=== PATIENT | male | born 1995 | race Caucasian/White ===

== ENCOUNTER 2020-12-05 10:08 | Inpatient (IN) | payer BC, MEDICAID ==
[~2020-12-05 10:08] MED LIST: Acetaminophen 500 MG Tab ONE
[2020-12-05] MEDS ORDERED: Acetaminophen 500 MG Tab PO ONE (10:23)
[2020-12-05] MEDS ORDERED: Sodium Chloride 0.9% 1,000 ML IV ONE (10:36)
--- NOTE | 2020-12-05 10:36 | EDM.PDOC ---
ED HPI GENERAL MEDICAL PROBLEM - General Chief Complaint: General Stated Complaint: covid sx Time Seen by Provider: 12/05/20 10:20 Source of Information: Reports: Patient History Limitations: Reports: No Limitations - History of Present Illness INITIAL COMMENTS - FREE TEXT/NARRATIVE: This patient is a 25 year old male that presents to the ER. Patient reports that started yesterday morning with some diarrhea. Patient reports as the day progressed he become sweaty and having cold chills. He reports then started yesterday evening having abdominal pain, diarrhea, fever, nausea. Patient reports his abdominal pain waxes and wanes. Denies an other sick contacts. Onset Date: 12/04/20 Location: Reports: Abdomen Severity: Moderate Improves with: Reports: None Worsens with: Reports: None Associated Symptoms: Reports: Fever/Chills, Loss of Appetite, Nausea/Vomiting. 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 (yesterday), NSAIDS (yesterday) Lower Abdomen Pain Score (Numeric/FACES): 8 - Related Data Allergies Allergy/AdvReac Type Severity Reaction Status Date / Time No Known Allergies Allergy Verified 12/05/20 10:16 Home Meds: Home Meds Acetaminophen [Tylenol] 650 mg PO Q6H PRN 12/05/20 [History] Past Medical History - Past Health History Medical/Surgical History: Denies Medical/Surgical History Social & Family History - Family History Family Medical History: No Pertinent Family History - Tobacco Use Tobacco Use Status *Q: Never Tobacco User - Caffeine Use Caffeine Use: Reports: Coffee - Recreational Drug Use Recreational Drug Use: No ED ROS GENERAL - Review of Systems Review Of Systems: See Below Constitutional: Reports: Fever, Chills, Diaphoresis HEENT: Reports: No Symptoms. Denies: Ear Pain, Nose Pain, Rhinitis, Sinus Problem, Throat Pain, Throat Swelling, Vertigo Respiratory: Reports: Cough. Denies: Shortness of Breath, Wheezing, Pleuritic Chest Pain, Sputum Cardiovascular: Reports: No Symptoms. Denies: Chest Pain, Dyspnea on Exertion, Edema, Lightheadedness, Palpitations, Syncope Endocrine: Reports: No Symptoms GI/Abdominal: Reports: Abdominal Pain, Diarrhea, Decreased Appetite, Nausea. Denies: Vomiting : Reports: No Symptoms Musculoskeletal: Reports: Muscle Pain (muscle aches general) Skin: Reports: No Symptoms Neurological: Reports: Headache. Denies: Confusion, Dizziness, Seizure, Weakness Psychiatric: Reports: No Symptoms Hematologic/Lymphatic: Reports: No Symptoms Immunologic: Reports: No Symptoms ED EXAM, GENERAL - Physical Exam Exam: See Below Exam Limited By: No Limitations General Appearance: Alert, WD/WN, No Apparent Distress Eye Exam: Bilateral Eye: Normal Inspection, PERRL Ears: Normal External Exam, Normal Canal, Hearing Grossly Normal, Normal TMs Ear Exam: Bilateral Ear: Auricle Normal, Canal Normal, TM normal Nose: Normal Inspection, Normal Mucosa, No Blood Throat/Mouth: Normal Inspection, Normal Lips, Normal Teeth, Normal Gums, Normal Oropharynx, Normal Voice, No Airway Compromise Head: Atraumatic, Normocephalic Neck: Normal Inspection, Supple, Non-Tender, Full Range of Motion Respiratory/Chest: No Respiratory Distress, Lungs Clear, Normal Breath Sounds, No Accessory Muscle Use, Chest Non-Tender Cardiovascular: Normal Peripheral Pulses, No Edema, No Gallop, No JVD, No Murmur, No Rub, Tachycardia (116 on exam. Also has fever. ) Peripheral Pulses: 2+: Radial (L), Radial (R), Posterior Tibial (L), Posterior Tibial (R) GI/Abdominal: Normal Bowel Sounds, Soft, No Organomegaly, No Distention, Rebound, Tender (LLQ, RLQ. ). No: Guarding (Male) Exam: Deferred Rectal (Males) Exam: Deferred Back Exam: Normal Inspection, Full Range of Motion. No: CVA Tenderness (L), CVA Tenderness (R) Extremities: Normal Inspection, Normal Range of Motion, Non-Tender, No Pedal Edema, Normal Capillary Refill Neurological: Alert, Oriented, Normal Cognition, Normal Gait, No Motor/Sensory Deficits Psychiatric: Normal Affect, Normal Mood Skin Exam: Warm, Dry, Intact, Normal Color, No Rash Lymphatic: No Adenopathy Course - Vital Signs Last Recorded V/S: Last Vital Signs Temp 99.6 F 12/05/20 13:56 Pulse 93 12/05/20 13:56 Resp 18 12/05/20 13:56 BP 135/78 12/05/20 13:56 Pulse Ox 94 L 12/05/20 13:56 - Orders/Labs/Meds Orders: Active Orders 24 hr Category Date Time Status Abdomen Pelvis w Cont [CT] Stat Exams 12/05/20 10:36 Taken Chest 2V [CR] Stat Exams 12/05/20 10:09 Taken CULTURE BLOOD [BC] Stat Lab 12/05/20 10:45 Received CULTURE BLOOD [BC] Stat Lab 12/05/20 10:45 Received Blood Culture x2 Reflex Set [OM.PC] Stat Oth 12/05/20 10:09 Ordered Labs: Laboratory Tests 12/05/20 12/05/20 12/05/20 Range/Units 10:20 10:20 10:37 WBC (5.0-10.0) 10^3/uL RBC (4.50-6.00) 10^6/uL Hgb (14.0-18.0) g/dL Hct (40.0-54.0) % MCV (82.0-94.0) fL MCH (27.0-32.0) pg MCHC (33.0-38.0) g/dL RDW Coeff of Jorge (11.0-15.0) % Plt Count (150-400) 10^3/uL Neut % (Auto) (35-85) % Lymph % (Auto) (10-55) % [place] % (Auto) (0-16) % Eos % (Auto) (0-5) % Baso % (Auto) (0-3) % Neut # (Auto) (1.80-7.00) 10^3/uL Lymph # (Auto) (1.00-4.80) 10^3/uL [place] # (Auto) (0.00-0.80) 10^3/uL Eos # (Auto) (0.00-0.45) 10^3/uL Baso # (Auto) 10^3/uL PT (9.7-12.3) SEC INR (0.92-1.18) APTT (23.2-32.3) SEC D-Dimer, Quantitative (0.00-0.50) Sodium (136-145) mEq/L Potassium (3.5-5.0) mEq/L Chloride (98-106) mEq/L Carbon Dioxide (21-32) mmol/L BUN (7-18) mg/dL Creatinine (0.7-1.3) mg/dL Est Cr Clr Drug Dosing mL/min Estimated GFR (MDRD) (>=60) mL/min Glucose (75-99) mg/dL Lactic Acid (0.4-2.0) mmol/L Calcium (8.4-10.1) mg/dL Total Bilirubin (0.0-1.0) mg/dL AST (15-37) U/L ALT (12-78) U/L Alkaline Phosphatase (46-116) U/L Creatine Kinase (35-232) U/L Troponin I (0.00-0.06) ng/mL NT-Pro-B Natriuret Pep (0-1000) pg/mL Total Protein (6.4-8.2) g/dL Albumin (3.4-5.0) g/dL Amylase 41 (25-115) U/L Lipase 81 (73-393) U/L Urine Color Dark yellow (YELLOW) Urine Appearance Slightly cloudy (CLEAR) Urine pH 6.0 (4.5-8.0) Ur Specific [place] >= 1.030 H (1.003-1.020) Urine Protein Trace H (NEGATIVE) mg/dL Urine Glucose (UA) Negative (NEGATIVE) mg/dL Urine Ketones Negative (NEGATIVE) mg/dL Urine Occult Blood Trace-intact H (NEGATIVE) Urine Nitrite Negative (NEGATIVE) Urine Bilirubin Negative (NEGATIVE) Urine Urobilinogen 0.2 (0.2-1.0) EU/dL Ur Leukocyte Esterase Negative (NEGATIVE) Urine RBC 0-5 (0-5) /HPF Urine WBC 0-5 (0-5) /HPF Urine Mucus Many H (NOT SEEN) /HPF Monoscreen Influenza Type A RNA Negative (NEGATIVE) Influenza Type B RNA Negative (NEGATIVE) SARS-CoV-2 RNA (CHARLES) Negative (NEGATIVE) 12/05/20 12/05/20 12/05/20 Range/Units 10:45 10:45 10:45 WBC 20.8 H* (5.0-10.0) 10^3/uL RBC 5.21 (4.50-6.00) 10^6/uL Hgb 15.3 (14.0-18.0) g/dL Hct 43.8 (40.0-54.0) % MCV 84.1 (82.0-94.0) fL MCH 29.4 (27.0-32.0) pg MCHC 34.9 (33.0-38.0) g/dL RDW Coeff of Jorge 12.7 (11.0-15.0) % Plt Count 279 (150-400) 10^3/uL Neut % (Auto) 85.9 H (35-85) % Lymph % (Auto) 7.5 L (10-55) % [place] % (Auto) 6.4 (0-16) % Eos % (Auto) 0.1 (0-5) % Baso % (Auto) 0.1 (0-3) % Neut # (Auto) 17.86 H (1.80-7.00) 10^3/uL Lymph # (Auto) 1.57 (1.00-4.80) 10^3/uL [place] # (Auto) 1.34 H (0.00-0.80) 10^3/uL Eos # (Auto) 0.02 (0.00-0.45) 10^3/uL Baso # (Auto) 0.03 10^3/uL PT 11.6 (9.7-12.3) SEC INR 1.06 (0.92-1.18) APTT 23.6 (23.2-32.3) SEC D-Dimer, Quantitative 0.53 H (0.00-0.50) Sodium 139 (136-145) mEq/L Potassium 3.9 (3.5-5.0) mEq/L Chloride 99 (98-106) mEq/L Carbon Dioxide 28 (21-32) mmol/L BUN 11 (7-18) mg/dL Creatinine 1.4 H (0.7-1.3) mg/dL Est Cr Clr Drug Dosing 98.17 mL/min Estimated GFR (MDRD) > 60 (>=60) mL/min Glucose 118 H (75-99) mg/dL Lactic Acid (0.4-2.0) mmol/L Calcium 9.4 (8.4-10.1) mg/dL Total Bilirubin 0.7 (0.0-1.0) mg/dL AST 21 (15-37) U/L ALT 88 H (12-78) U/L Alkaline Phosphatase 56 (46-116) U/L Creatine Kinase 73 (35-232) U/L Troponin I < 0.017 (0.00-0.06) ng/mL NT-Pro-B Natriuret Pep 11 (0-1000) pg/mL Total Protein 8.0 (6.4-8.2) g/dL Albumin 4.2 (3.4-5.0) g/dL Amylase (25-115) U/L Lipase (73-393) U/L Urine Color (YELLOW) Urine Appearance (CLEAR) Urine pH (4.5-8.0) Ur Specific [place] (1.003-1.020) Urine Protein (NEGATIVE) mg/dL Urine Glucose (UA) (NEGATIVE) mg/dL Urine Ketones (NEGATIVE) mg/dL Urine Occult Blood (NEGATIVE) Urine Nitrite (NEGATIVE) Urine Bilirubin (NEGATIVE) Urine Urobilinogen (0.2-1.0) EU/dL Ur Leukocyte Esterase (NEGATIVE) Urine RBC (0-5) /HPF Urine WBC (0-5) /HPF Urine Mucus (NOT SEEN) /HPF Monoscreen Influenza Type A RNA (NEGATIVE) Influenza Type B RNA (NEGATIVE) SARS-CoV-2 RNA (CHARLES) (NEGATIVE) 12/05/20 12/05/20 Range/Units 10:45 12:05 WBC (5.0-10.0) 10^3/uL RBC (4.50-6.00) 10^6/uL Hgb (14.0-18.0) g/dL Hct (40.0-54.0) % MCV (82.0-94.0) fL MCH (27.0-32.0) pg MCHC (33.0-38.0) g/dL RDW Coeff of Jorge (11.0-15.0) % Plt Count (150-400) 10^3/uL Neut % (Auto) (35-85) % Lymph % (Auto) (10-55) % [place] % (Auto) (0-16) % Eos % (Auto) (0-5) % Baso % (Auto) (0-3) % Neut # (Auto) (1.80-7.00) 10^3/uL Lymph # (Auto) (1.00-4.80) 10^3/uL [place] # (Auto) (0.00-0.80) 10^3/uL Eos # (Auto) (0.00-0.45) 10^3/uL Baso # (Auto) 10^3/uL PT (9.7-12.3) SEC INR (0.92-1.18) APTT (23.2-32.3) SEC D-Dimer, Quantitative (0.00-0.50) Sodium (136-145) mEq/L Potassium (3.5-5.0) mEq/L Chloride (98-106) mEq/L Carbon Dioxide (21-32) mmol/L BUN (7-18) mg/dL Creatinine (0.7-1.3) mg/dL Est Cr Clr Drug Dosing mL/min Estimated GFR (MDRD) (>=60) mL/min Glucose (75-99) mg/dL Lactic Acid 2.4 H (0.4-2.0) mmol/L Calcium (8.4-10.1) mg/dL Total Bilirubin (0.0-1.0) mg/dL AST (15-37) U/L ALT (12-78) U/L Alkaline Phosphatase (46-116) U/L Creatine Kinase (35-232) U/L Troponin I (0.00-0.06) ng/mL NT-Pro-B Natriuret Pep (0-1000) pg/mL Total Protein (6.4-8.2) g/dL Albumin (3.4-5.0) g/dL Amylase (25-115) U/L Lipase (73-393) U/L Urine Color (YELLOW) Urine Appearance (CLEAR) Urine pH (4.5-8.0) Ur Specific [place] (1.003-1.020) Urine Protein (NEGATIVE) mg/dL Urine Glucose (UA) (NEGATIVE) mg/dL Urine Ketones (NEGATIVE) mg/dL Urine Occult Blood (NEGATIVE) Urine Nitrite (NEGATIVE) Urine Bilirubin (NEGATIVE) Urine Urobilinogen (0.2-1.0) EU/dL Ur Leukocyte Esterase (NEGATIVE) Urine RBC (0-5) /HPF Urine WBC (0-5) /HPF Urine Mucus (NOT SEEN) /HPF Monoscreen Negative Influenza Type A RNA (NEGATIVE) Influenza Type B RNA (NEGATIVE) SARS-CoV-2 RNA (CHARLES) (NEGATIVE) Meds: Medications Discontinued Medications Generic Name Dose Route Start Last Admin Trade Name Freq PRN Reason Stop Dose Admin Acetaminophen 1,000 mg 03/21/21 10:23 12/05/20 10:28 Acetaminophen 500 Mg Tab PO 12/05/20 10:24 1,000 mg ONETIME ONE Administration Acetaminophen Confirm 12/05/20 10:05 12/05/20 10:28 Acetaminophen 500 Mg Tab Administered 12/05/20 10:06 Not Given Dose 500 mg .ROUTE .STK-MED ONE Sodium Chloride 1,000 mls @ 1,000 mls/hr 12/05/20 10:36 12/05/20 10:45 Normal Saline IV 12/05/20 11:35 1,000 mls/hr .BOLUS ONE Administration Iopamidol 160 ml 12/05/20 10:57 12/05/20 11:43 Iopamidol 755 Mg/Ml 200 Ml Bottle IV 12/05/20 10:58 160 ml ONETIME ONE Administration Morphine Sulfate 4 mg 12/05/20 11:24 12/05/20 11:46 Morphine 4 Mg/Ml Vial IVPUSH 12/05/20 11:25 4 mg ONETIME ONE Administration Ondansetron HCl 4 mg 12/05/20 11:24 12/05/20 11:46 Ondansetron 4 Mg/2 Ml Sdv IVPUSH 12/05/20 11:25 4 mg NOW STA Administration - Radiology Interpretation Free Text/Narrative:: CT Abd/Pelvis with contrast IV: Appendix normal. Mild wall thickening and mucosal enhancement in the colon may represent mild nonspecific colitis or be related to nondistended status. Otherwise, no acute findings in the ab/pelvis. Hepatomegaly with diffuse hepatic steatosis. Splenomegaly. CT Results Date: 12/05/20 CT Results Time: 11:53 - Re-Assessments/Exams Free Text/Narrative Re-Assessment/Exam: 12/05/20 13:50 Patient lactic acid is elevated. He is febrile, tachycardic. Meets sepsis criteria. His WBC is 20k. CT shows colitis. At this time will admit, start IV abx, IV fluids. Will keep NPO. Tomorrow morning labs will be repeated and patient evaluated. If labs worsens, may consider transfer. Departure - Departure Time of Disposition: 13:25 Disposition: Admitted As Inpatient 65 Condition: Fair Clinical Impression: Colitis Sepsis Qualifiers: Sepsis type: sepsis due to unspecified organism Sepsis acute organ dysfunction status: without acute organ dysfunction Qualified Code(s): A41.9 - Sepsis, unspecified organism - Discharge Information *PRESCRIPTION DRUG MONITORING PROGRAM REVIEWED*: Not Applicable *COPY OF PRESCRIPTION DRUG MONITORING REPORT IN PATIENT CHRISTAL: Not Applicable Sepsis Event Note (ED) - Evaluation Sepsis Screening Result: Possible Sepsis Risk - Focused Exam Vital Signs: Vital Signs Temp Temp Pulse Resp BP Pulse Ox 12/05/20 10:58 99.4 F 12/05/20 10:28 102.7 F H 12/05/20 10:13 102.7 F H 121 H 18 130/66 97 - My Orders Last 24 Hours: My Active Orders 12/05/20 10:09 Chest 2V [CR] Stat Blood Culture x2 Reflex Set [OM.PC] Stat 12/05/20 10:36 Abdomen Pelvis w Cont [CT] Stat 12/05/20 10:45 CULTURE BLOOD [BC] Stat CULTURE BLOOD [BC] Stat - Assessment/Plan Last 24 Hours: My Active Orders 12/05/20 10:09 Chest 2V [CR] Stat Blood Culture x2 Reflex Set [OM.PC] Stat 12/05/20 10:36 Abdomen Pelvis w Cont [CT] Stat 12/05/20 10:45 CULTURE BLOOD [BC] Stat CULTURE BLOOD [BC] Stat Plan: PLEASE SEE RN NOTE FOR PFSH
[2020-12-05] MEDS ORDERED: Iopamidol 755 Mg/ML 200 ML Bottle IV ONE (10:57)
[2020-12-05 11:12] LABS: CHLORIDE,CL 99 mEq/L (98-106); SODIUM,NA 139 mEq/L (136-145)
[2020-12-05 11:17] LABS: PTT,PARTIAL THROMBOPLSTIN TIME 23.6 SEC (23.2-32.3)
[2020-12-05] MEDS ORDERED: Morphine 4 MG/ML VIAL IVPUSH ONE (11:24)
[2020-12-05] MEDS ORDERED: Ondansetron 4 MG/2 ML SDV IVPUSH STA (11:24)
[2020-12-05 11:41] LABS: CORONAVIRUS COVID-19 NAA NEGATIVE (NEGATIVE)
[2020-12-05] MEDS ORDERED: Ondansetron 4 MG/2 ML SDV IV PRN (14:59)
[2020-12-05] MEDS ORDERED: Sodium Chloride 0.9% 1,000 ML IV SCH (14:59)
[2020-12-05] MEDS ORDERED: Piperacillin/Tazobactam 4.5 GM in Sodium Chloride 0.9% 100 ML IV SCH (15:00)
[2020-12-05] MEDS: Ibuprofen 200 MG Tab PO PRN ×2 (15:34→22:19)
[2020-12-05] MEDS: Sodium Chloride 0.9% 1,000 ML IV SCH ×2 (18:52→22:21)
[2020-12-05] MEDS: Acetaminophen 325 MG Tab PO PRN (19:45)
[2020-12-05] MEDS: Morphine 2 MG/ML SYRINGE IVPUSH PRN (22:20)
[2020-12-06] MEDS: Piperacillin/Tazobactam 4.5 GM in Sodium Chloride 0.9% 100 ML IV SCH ×3 (00:13→16:40)
[2020-12-06] MEDS: Acetaminophen 325 MG Tab PO PRN ×2 (00:23→09:16)
[2020-12-06] MEDS: Morphine 2 MG/ML SYRINGE IVPUSH PRN ×2 (04:12→09:16)
[2020-12-06] MEDS: Ibuprofen 200 MG Tab PO PRN ×2 (04:12→12:26)
[2020-12-06] MEDS ORDERED: Acetaminophen 500 MG Tab PO PRN (09:39)
--- NOTE | 2020-12-06 22:41 | PCM.PN ---
- General Info Date of Service: 12/06/20 Admission Dx/Problem (Free Text): This patient is a 25 year old male who was a direct admit from the ER yesterday. Patient was admitted secondary to diarrhea that had started the day prior. Patient reports as the day progressed he become sweaty and having cold chills. He reports Sunday evening he started having abdominal pain, diarrhea, fever and nausea. Patient reports his abdominal pain waxes and wanes. Denies any other sick contacts. Subjective Update: Herve states today he is feeling better than he was yesterday. Has broken his fever. Admits to ongoing diarrhea, which has slightly improved. Admits thru the night it was every couple hours. State he continues to have intermittent abdominal pain. Denies any nausea or vomiting. No bloody stools. Has history of antibiotic use a few months ago but denies any known history of C. Diff. 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 Functional Status: Reports: Pain Controlled, Ambulating, Urinating - Review of Systems General: Reports: Fatigue. Denies: Fever, Appetite HEENT: Reports: No Symptoms Pulmonary: Reports: No Symptoms Cardiovascular: Reports: No Symptoms Gastrointestinal: Reports: Abdominal Pain, Decreased Appetite, Diarrhea. Denies: Constipation, Hematochezia, Melena, Nausea, Vomiting Genitourinary: Reports: No Symptoms Musculoskeletal: Reports: No Symptoms Skin: Reports: No Symptoms Neurological: Reports: No Symptoms - Patient Data Vitals - Most Recent: Last Vital Signs Temp 98.3 F 12/06/20 21:17 Pulse 96 12/06/20 19:45 Resp 18 12/06/20 19:45 BP 115/72 12/06/20 19:45 Pulse Ox 98 12/06/20 19:45 Weight - Most Recent: 303 lb 4.8 oz Lab Results Last 24 Hours: Laboratory Results - last 24 hr 12/06/20 12/06/20 12/06/20 Range/Units 07:14 07:14 07:14 WBC 14.7 H (5.0-10.0) 10^3/uL RBC 4.80 (4.50-6.00) 10^6/uL Hgb 13.9 L (14.0-18.0) g/dL Hct 41.8 (40.0-54.0) % MCV 87.1 (82.0-94.0) fL MCH 29.0 (27.0-32.0) pg MCHC 33.3 (33.0-38.0) g/dL RDW Coeff of Jorge 12.8 (11.0-15.0) % Plt Count 210 (150-400) 10^3/uL Neut % (Auto) 81.0 (35-85) % Lymph % (Auto) 10.6 (10-55) % [place] % (Auto) 8.2 (0-16) % Eos % (Auto) 0.1 (0-5) % Baso % (Auto) 0.1 (0-3) % Neut # (Auto) 11.86 H (1.80-7.00) 10^3/uL Lymph # (Auto) 1.55 (1.00-4.80) 10^3/uL [place] # (Auto) 1.20 H (0.00-0.80) 10^3/uL Eos # (Auto) 0.02 (0.00-0.45) 10^3/uL Baso # (Auto) 0.02 10^3/uL Sodium 143 (136-145) mEq/L Potassium 4.3 (3.5-5.0) mEq/L Chloride 105 (98-106) mEq/L Carbon Dioxide 28 (21-32) mmol/L BUN 13 (7-18) mg/dL Creatinine 1.5 H (0.7-1.3) mg/dL Est Cr Clr Drug Dosing 91.62 mL/min Estimated GFR (MDRD) 57 L (>=60) mL/min Glucose 107 H (75-99) mg/dL Lactic Acid 1.0 (0.4-2.0) mmol/L Calcium 8.6 (8.4-10.1) mg/dL Total Bilirubin 0.6 (0.0-1.0) mg/dL AST 17 (15-37) U/L ALT 63 (12-78) U/L Alkaline Phosphatase 41 L (46-116) U/L C-Reactive Protein 11.1 H (0.2-0.8) mg/dL Total Protein 6.9 (6.4-8.2) g/dL Albumin 3.3 L (3.4-5.0) g/dL Steve Results Last 24 Hours: Microbiology 03/22/21 09:29 Stool for WBCs - Final Stool / Feces 12/06/20 09:29 C. difficile DNA Amplification - Final Stool / Feces NEGATIVE CDIFF BY DNA REFERENCE RANGE: NEGATIVE 12/05/20 10:45 Aerobic Blood Culture - Preliminary Blood - Venous - Lab Draw NO GROWTH AFTER 1 DAY Anaerobic Blood Culture - Preliminary NO GROWTH AFTER 1 DAY 12/05/20 10:45 Aerobic Blood Culture - Preliminary Blood - Venous NO GROWTH AFTER 1 DAY Anaerobic Blood Culture - Preliminary NO GROWTH AFTER 1 DAY Med Orders - Current: Current Medications Acetaminophen (Acetaminophen 500 Mg Tab) 1,000 mg PO Q6H PRN PRN Reason: Pain (Mild 1-3)/fever Piperacillin Sod/Tazobactam (Sod 4.5 gm/ Sodium Chloride) 100 mls @ 25 mls/hr IV Q8H ERIKA Last Admin: 12/06/20 16:40 Dose: 25 mls/hr Documented by: Ibuprofen (Ibuprofen 200 Mg Tab) 800 mg PO Q6H PRN PRN Reason: Pain (mild 1-3) Last Admin: 12/06/20 12:26 Dose: 800 mg Documented by: Morphine Sulfate (Morphine 2 Mg/Ml Syringe) 2 mg IVPUSH Q2H PRN PRN Reason: Pain (severe 7-10) Last Admin: 12/06/20 09:16 Dose: 2 mg Documented by: Ondansetron HCl (Ondansetron 4 Mg/2 Ml Sdv) 4 mg IV Q6H PRN PRN Reason: Nausea/Vomiting Discontinued Medications Acetaminophen (Acetaminophen 500 Mg Tab) 1,000 mg PO ONETIME ONE Stop: 12/05/20 10:24 Last Admin: 12/05/20 10:28 Dose: 1,000 mg Documented by: Acetaminophen (Acetaminophen 500 Mg Tab) Confirm Administered Dose 500 mg .ROUTE .STK-MED ONE Stop: 12/05/20 10:06 Last Admin: 12/05/20 10:28 Dose: Not Given Documented by: Acetaminophen (Acetaminophen 325 Mg Tab) 650 mg PO Q4H PRN PRN Reason: Pain (Mild 1-3)/fever Last Admin: 12/06/20 09:16 Dose: 650 mg Documented by: Sodium Chloride (Normal Saline) 1,000 mls @ 1,000 mls/hr IV .BOLUS ONE Stop: 12/05/20 11:35 Last Admin: 12/05/20 10:45 Dose: 1,000 mls/hr Documented by: Sodium Chloride (Normal Saline) 1,000 mls @ 125 mls/hr IV ASDIRECTED ERIKA Stop: 12/06/20 22:58 Last Admin: 12/05/20 22:21 Dose: 125 mls/hr Documented by: Sodium Chloride (Normal Saline) 1,000 mls @ 999 mls/hr IV .BOLUS ERIKA Last Admin: 12/05/20 15:22 Dose: 999 mls/hr Documented by: Piperacillin Sod/Tazobactam (Sod 4.5 gm/ Sodium Chloride) 100 mls @ 25 mls/hr IV Q8H ERIKA Last Admin: 12/05/20 15:22 Dose: 25 mls/hr Documented by: Ibuprofen (Ibuprofen 200 Mg Tab) 600 mg PO Q6H PRN PRN Reason: Pain (mild 1-3) Last Admin: 12/06/20 04:12 Dose: 600 mg Documented by: Iopamidol (Iopamidol 755 Mg/Ml 200 Ml Bottle) 160 ml IV ONETIME ONE Stop: 12/05/20 10:58 Last Admin: 12/05/20 11:43 Dose: 160 ml Documented by: Morphine Sulfate (Morphine 4 Mg/Ml Vial) 4 mg IVPUSH ONETIME ONE Stop: 12/05/20 11:25 Last Admin: 12/05/20 11:46 Dose: 4 mg Documented by: Ondansetron HCl (Ondansetron 4 Mg/2 Ml Sdv) 4 mg IVPUSH NOW STA Stop: 12/05/20 11:25 Last Admin: 12/05/20 11:46 Dose: 4 mg Documented by: - Exam General: Alert, Oriented, Cooperative, No Acute Distress Lungs: Clear to Auscultation, Normal Respiratory Effort Cardiovascular: Regular Rate, Regular Rhythm GI/Abdominal Exam: Normal Bowel Sounds, No Organomegaly, No Distention, No Abnormal Bruit, No Mass, Tender. No: Guarding, Mass Extremities: Normal Inspection Skin: Warm, Dry, Intact Neurological: No New Focal Deficit Psy/Mental Status: Alert, Normal Affect, Normal Mood - Patient Data Lab Results Last 24 hrs: Laboratory Results - last 24 hr 12/06/20 12/06/20 12/06/20 Range/Units 07:14 07:14 07:14 WBC 14.7 H (5.0-10.0) 10^3/uL RBC 4.80 (4.50-6.00) 10^6/uL Hgb 13.9 L (14.0-18.0) g/dL Hct 41.8 (40.0-54.0) % MCV 87.1 (82.0-94.0) fL MCH 29.0 (27.0-32.0) pg MCHC 33.3 (33.0-38.0) g/dL RDW Coeff of Jorge 12.8 (11.0-15.0) % Plt Count 210 (150-400) 10^3/uL Neut % (Auto) 81.0 (35-85) % Lymph % (Auto) 10.6 (10-55) % [place] % (Auto) 8.2 (0-16) % Eos % (Auto) 0.1 (0-5) % Baso % (Auto) 0.1 (0-3) % Neut # (Auto) 11.86 H (1.80-7.00) 10^3/uL Lymph # (Auto) 1.55 (1.00-4.80) 10^3/uL [place] # (Auto) 1.20 H (0.00-0.80) 10^3/uL Eos # (Auto) 0.02 (0.00-0.45) 10^3/uL Baso # (Auto) 0.02 10^3/uL Sodium 143 (136-145) mEq/L Potassium 4.3 (3.5-5.0) mEq/L Chloride 105 (98-106) mEq/L Carbon Dioxide 28 (21-32) mmol/L BUN 13 (7-18) mg/dL Creatinine 1.5 H (0.7-1.3) mg/dL Est Cr Clr Drug Dosing 91.62 mL/min Estimated GFR (MDRD) 57 L (>=60) mL/min Glucose 107 H (75-99) mg/dL Lactic Acid 1.0 (0.4-2.0) mmol/L Calcium 8.6 (8.4-10.1) mg/dL Total Bilirubin 0.6 (0.0-1.0) mg/dL AST 17 (15-37) U/L ALT 63 (12-78) U/L Alkaline Phosphatase 41 L (46-116) U/L C-Reactive Protein 11.1 H (0.2-0.8) mg/dL Total Protein 6.9 (6.4-8.2) g/dL Albumin 3.3 L (3.4-5.0) g/dL Result Diagrams: 12/06/20 07:14 12/06/20 07:14 Steve Results Last 24 hrs: Microbiology 12/06/20 09:29 Stool for WBCs - Final Stool / Feces 12/06/20 09:29 C. difficile DNA Amplification - Final Stool / Feces NEGATIVE CDIFF BY DNA REFERENCE RANGE: NEGATIVE 12/05/20 10:45 Aerobic Blood Culture - Preliminary Blood - Venous - Lab Draw NO GROWTH AFTER 1 DAY Anaerobic Blood Culture - Preliminary NO GROWTH AFTER 1 DAY 12/05/20 10:45 Aerobic Blood Culture - Preliminary Blood - Venous NO GROWTH AFTER 1 DAY Anaerobic Blood Culture - Preliminary NO GROWTH AFTER 1 DAY Sepsis Event Note - Evaluation Sepsis Screening Result: Sepsis Risk Possible Source of Sepsis: GI Tract/Intra-abdominal - Focused Exam Vital Signs: Vital Signs Temp Temp Pulse Resp BP Pulse Ox 12/06/20 21:17 98.3 F 12/06/20 19:45 99.2 F 96 18 115/72 98 12/06/20 16:00 97.3 F 81 18 118/71 96 12/06/20 13:26 97.8 F 12/06/20 12:26 99.6 F 12/06/20 12:00 99.6 F 95 18 109/66 96 - Problem List & Annotations (1) Colitis SNOMED Code(s): 52384278 Code(s): K52.9 - NONINFECTIVE GASTROENTERITIS AND COLITIS, UNSPECIFIED Status: Acute Current Visit: Yes (2) Diarrhea in adult patient SNOMED Code(s): 84156819 Code(s): R19.7 - DIARRHEA, UNSPECIFIED Status: Acute Current Visit: Yes - Problem List Review Problem List Initiated/Reviewed/Updated: Yes - My Orders Last 24 Hours: My Active Orders 12/06/20 09:29 GIARDIA ANTIGEN BY IMMUNOASSAY [MREF] Routine 12/06/20 09:31 Isolation [COMM] Stat 12/06/20 09:32 STOOL CULTURE [MREF] Routine 12/06/20 09:33 H PYLORI STOOL ANTIGEN [MREF] Urgent 12/06/20 09:36 Ibuprofen [Motrin] 800 mg PO Q6H PRN 12/06/20 09:39 Acetaminophen [Tylenol Extra Strength] 1,000 mg PO Q6H PRN 12/06/20 Lunch Clear Liquid Diet [DIET] 12/06/20 17:47 Saline Lock Insert [OM.PC] Routine - Plan Plan:: 12/06/2020 Patient is overall doing a lot better today. Laboratory work [place] [address] [place] [address] yesterday. Lactic acid was elevated yesterday and has normalized today. CRP elevate to 11 today, no prior available. Reviewed CT report from yesterday which did show nonspecific mild colitis. No appendicitis. Did show hepatomegaly and splenomegaly. Normal LFT's, amylase and lipase. Patient is afebrile. Will continue with IV antibiotics and reevaluate in am. Stool cultures orderd. C. Diff is negative. Stool for WBC's is negative. Will increase diet to clear liquids today.
[2020-12-07] MEDS ORDERED: Temazepam 15 MG Cap PO PRN (00:42)
[2020-12-07] MEDS: Piperacillin/Tazobactam 4.5 GM in Sodium Chloride 0.9% 100 ML IV SCH ×3 (00:55→16:52)
[2020-12-07] MEDS: Ibuprofen 200 MG Tab PO PRN (01:08)
[2020-12-07 07:36] LABS: CHLORIDE,CL 106 mEq/L (98-106); SODIUM,NA 144 mEq/L (136-145)
--- NOTE | 2020-12-07 12:13 | PCM.PN ---
- General Info Date of Service: 12/07/20 Admission Dx/Problem (Free Text): This patient is a 25 year old male who was a direct admit from the ER yesterday. Patient was admitted secondary to diarrhea that had started the day prior. Patient reports as the day progressed he become sweaty and having cold chills. He reports Sunday evening he started having abdominal pain, diarrhea, fever and nausea. Patient reports his abdominal pain waxes and wanes. Denies any other sick contacts. Subjective Update: 12/06/2020 Herve states today he is feeling better than he was yesterday. Has broken his fever. Admits to ongoing diarrhea, which has slightly improved. Admits thru the night it was every couple hours. State he continues to have intermittent abdominal pain. Denies any nausea or vomiting. No bloody stools. Has history of antibiotic use a few months ago but denies any known history of C. Diff. 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 12/07/2020 Herve continues to be doing well. States the abdominal pain continues to improved. Currently has mild abdominal discomfort. Has done well with clear liquids and states he would like to advance his diet. Nursing staff admit he did have a low grade fever last night, currently afebrile. States the diarrhea has improved in frequency with only 1 episode last night and 1 this morning. - Review of Systems General: Reports: Fever HEENT: Reports: No Symptoms Pulmonary: Reports: No Symptoms Cardiovascular: Reports: No Symptoms Gastrointestinal: Reports: Abdominal Pain (intermittent), Diarrhea. Denies: Constipation, Hematochezia, Melena, Nausea, Vomiting Genitourinary: Reports: No Symptoms Musculoskeletal: Reports: No Symptoms Skin: Reports: No Symptoms Neurological: Reports: No Symptoms Psychiatric: Reports: No Symptoms - Patient Data Vitals - Most Recent: Last Vital Signs Temp 98 F 12/07/20 11:57 Pulse 78 12/07/20 11:57 Resp 16 12/07/20 11:57 BP 103/52 L 12/07/20 11:57 Pulse Ox 96 12/07/20 11:57 Weight - Most Recent: 303 lb 4.8 oz Lab Results Last 24 Hours: Laboratory Results - last 24 hr 12/07/20 12/07/20 12/07/20 Range/Units 07:00 07:00 07:00 WBC 8.5 (5.0-10.0) 10^3/uL RBC 4.83 (4.50-6.00) 10^6/uL Hgb 14.0 (14.0-18.0) g/dL Hct 41.9 (40.0-54.0) % MCV 86.7 (82.0-94.0) fL MCH 29.0 (27.0-32.0) pg MCHC 33.4 (33.0-38.0) g/dL RDW Coeff of Jorge 12.8 (11.0-15.0) % Plt Count 224 (150-400) 10^3/uL Neut % (Auto) 56.9 (35-85) % Lymph % (Auto) 28.8 (10-55) % [place] % (Auto) 12.0 (0-16) % Eos % (Auto) 2.1 (0-5) % Baso % (Auto) 0.2 (0-3) % Neut # (Auto) 4.85 (1.80-7.00) 10^3/uL Lymph # (Auto) 2.46 (1.00-4.80) 10^3/uL [place] # (Auto) 1.02 H (0.00-0.80) 10^3/uL Eos # (Auto) 0.18 (0.00-0.45) 10^3/uL Baso # (Auto) 0.02 10^3/uL Sodium 144 (136-145) mEq/L Potassium 4.1 (3.5-5.0) mEq/L Chloride 106 (98-106) mEq/L Carbon Dioxide 30 (21-32) mmol/L BUN 11 (7-18) mg/dL Creatinine 1.3 (0.7-1.3) mg/dL Est Cr Clr Drug Dosing 105.72 mL/min Estimated GFR (MDRD) > 60 (>=60) mL/min Glucose 94 (75-99) mg/dL Lactic Acid 0.8 (0.4-2.0) mmol/L Calcium 8.7 (8.4-10.1) mg/dL Total Bilirubin 0.5 (0.0-1.0) mg/dL AST 23 (15-37) U/L ALT 65 (12-78) U/L Alkaline Phosphatase 39 L (46-116) U/L C-Reactive Protein 7.4 H (0.2-0.8) mg/dL Total Protein 7.0 (6.4-8.2) g/dL Albumin 3.2 L (3.4-5.0) g/dL Steve Results Last 24 Hours: Microbiology 12/05/20 10:45 Aerobic Blood Culture - Preliminary Blood - Venous - Lab Draw NO GROWTH AFTER 2 DAYS Anaerobic Blood Culture - Preliminary NO GROWTH AFTER 2 DAYS 12/05/20 10:45 Aerobic Blood Culture - Preliminary Blood - Venous NO GROWTH AFTER 2 DAYS Anaerobic Blood Culture - Preliminary NO GROWTH AFTER 2 DAYS 12/06/20 09:29 Stool for WBCs - Final Stool / Feces 12/06/20 09:29 C. difficile DNA Amplification - Final Stool / Feces NEGATIVE CDIFF BY DNA REFERENCE RANGE: NEGATIVE Med Orders - Current: Current Medications Acetaminophen (Acetaminophen 500 Mg Tab) 1,000 mg PO Q6H PRN PRN Reason: Pain (Mild 1-3)/fever Piperacillin Sod/Tazobactam (Sod 4.5 gm/ Sodium Chloride) 100 mls @ 25 mls/hr IV Q8H [facility] Last Admin: 12/07/20 07:53 Dose: 25 mls/hr Documented by: Ibuprofen (Ibuprofen 200 Mg Tab) 800 mg PO Q6H PRN PRN Reason: Pain (mild 1-3) Last Admin: 12/07/20 01:08 Dose: 800 mg Documented by: Morphine Sulfate (Morphine 2 Mg/Ml Syringe) 2 mg IVPUSH Q2H PRN PRN Reason: Pain (severe 7-10) Last Admin: 12/06/20 09:16 Dose: 2 mg Documented by: Ondansetron HCl (Ondansetron 4 Mg/2 Ml Sdv) 4 mg IV Q6H PRN PRN Reason: Nausea/Vomiting Temazepam (Temazepam 15 Mg Cap) 15 mg PO BEDTIME PRN PRN Reason: Insomnia Last Admin: 12/07/20 01:08 Dose: 15 mg Documented by: Discontinued Medications Acetaminophen (Acetaminophen 500 Mg Tab) 1,000 mg PO ONETIME ONE Stop: 12/05/20 10:24 Last Admin: 12/05/20 10:28 Dose: 1,000 mg Documented by: Acetaminophen (Acetaminophen 500 Mg Tab) Confirm Administered Dose 500 mg .ROUTE .STK-MED ONE Stop: 12/05/20 10:06 Last Admin: 12/05/20 10:28 Dose: Not Given Documented by: Acetaminophen (Acetaminophen 325 Mg Tab) 650 mg PO Q4H PRN PRN Reason: Pain (Mild 1-3)/fever Last Admin: 12/06/20 09:16 Dose: 650 mg Documented by: Sodium Chloride (Normal Saline) 1,000 mls @ 1,000 mls/hr IV .BOLUS ONE Stop: 12/05/20 11:35 Last Admin: 12/05/20 10:45 Dose: 1,000 mls/hr Documented by: Sodium Chloride (Normal Saline) 1,000 mls @ 125 mls/hr IV ASDIRECTED ERIKA Stop: 12/06/20 22:58 Last Admin: 12/05/20 22:21 Dose: 125 mls/hr Documented by: Sodium Chloride (Normal Saline) 1,000 mls @ 999 mls/hr IV .BOLUS [facility] Last Admin: 12/05/20 15:22 Dose: 999 mls/hr Documented by: Piperacillin Sod/Tazobactam (Sod 4.5 gm/ Sodium Chloride) 100 mls @ 25 mls/hr IV Q8H [facility] Last Admin: 12/05/20 15:22 Dose: 25 mls/hr Documented by: Ibuprofen (Ibuprofen 200 Mg Tab) 600 mg PO Q6H PRN PRN Reason: Pain (mild 1-3) Last Admin: 12/06/20 04:12 Dose: 600 mg Documented by: Iopamidol (Iopamidol 755 Mg/Ml 200 Ml Bottle) 160 ml IV ONETIME ONE Stop: 12/05/20 10:58 Last Admin: 12/05/20 11:43 Dose: 160 ml Documented by: Morphine Sulfate (Morphine 4 Mg/Ml Vial) 4 mg IVPUSH ONETIME ONE Stop: 12/05/20 11:25 Last Admin: 12/05/20 11:46 Dose: 4 mg Documented by: Ondansetron HCl (Ondansetron 4 Mg/2 Ml Sdv) 4 mg IVPUSH NOW STA Stop: 12/05/20 11:25 Last Admin: 12/05/20 11:46 Dose: 4 mg Documented by: - Exam General: Alert, Oriented, Cooperative, No Acute Distress Lungs: Clear to Auscultation, Normal Respiratory Effort Cardiovascular: Regular Rate, Regular Rhythm, No Murmurs GI/Abdominal Exam: Normal Bowel Sounds, Soft, Non-Tender, No Organomegaly, No Distention, No Mass Back Exam: Normal Inspection Extremities: Normal Inspection, No Pedal Edema Skin: Warm, Dry, Intact Neurological: No New Focal Deficit Psy/Mental Status: Alert, Normal Affect, Normal Mood - Patient Data Lab Results Last 24 hrs: Laboratory Results - last 24 hr 12/07/20 12/07/20 12/07/20 Range/Units 07:00 07:00 07:00 WBC 8.5 (5.0-10.0) 10^3/uL RBC 4.83 (4.50-6.00) 10^6/uL Hgb 14.0 (14.0-18.0) g/dL Hct 41.9 (40.0-54.0) % MCV 86.7 (82.0-94.0) fL MCH 29.0 (27.0-32.0) pg MCHC 33.4 (33.0-38.0) g/dL RDW Coeff of Jorge 12.8 (11.0-15.0) % Plt Count 224 (150-400) 10^3/uL Neut % (Auto) 56.9 (35-85) % Lymph % (Auto) 28.8 (10-55) % [place] % (Auto) 12.0 (0-16) % Eos % (Auto) 2.1 (0-5) % Baso % (Auto) 0.2 (0-3) % Neut # (Auto) 4.85 (1.80-7.00) 10^3/uL Lymph # (Auto) 2.46 (1.00-4.80) 10^3/uL [place] # (Auto) 1.02 H (0.00-0.80) 10^3/uL Eos # (Auto) 0.18 (0.00-0.45) 10^3/uL Baso # (Auto) 0.02 10^3/uL Sodium 144 (136-145) mEq/L Potassium 4.1 (3.5-5.0) mEq/L Chloride 106 (98-106) mEq/L Carbon Dioxide 30 (21-32) mmol/L BUN 11 (7-18) mg/dL Creatinine 1.3 (0.7-1.3) mg/dL Est Cr Clr Drug Dosing 105.72 mL/min Estimated GFR (MDRD) > 60 (>=60) mL/min Glucose 94 (75-99) mg/dL Lactic Acid 0.8 (0.4-2.0) mmol/L Calcium 8.7 (8.4-10.1) mg/dL Total Bilirubin 0.5 (0.0-1.0) mg/dL AST 23 (15-37) U/L ALT 65 (12-78) U/L Alkaline Phosphatase 39 L (46-116) U/L C-Reactive Protein 7.4 H (0.2-0.8) mg/dL Total Protein 7.0 (6.4-8.2) g/dL Albumin 3.2 L (3.4-5.0) g/dL Result Diagrams: 12/07/20 07:00 12/07/20 07:00 Steve Results Last 24 hrs: Microbiology 12/05/20 10:45 Aerobic Blood Culture - Preliminary Blood - Venous - Lab Draw NO GROWTH AFTER 2 DAYS Anaerobic Blood Culture - Preliminary NO GROWTH AFTER 2 DAYS 12/05/20 10:45 Aerobic Blood Culture - Preliminary Blood - Venous NO GROWTH AFTER 2 DAYS Anaerobic Blood Culture - Preliminary NO GROWTH AFTER 2 DAYS 12/06/20 09:29 Stool for WBCs - Final Stool / Feces 12/06/20 09:29 C. difficile DNA Amplification - Final Stool / Feces NEGATIVE CDIFF BY DNA REFERENCE RANGE: NEGATIVE Sepsis Event Note - Evaluation Sepsis Screening Result: No Definite Risk - Focused Exam Vital Signs: Vital Signs Temp Temp Pulse Resp BP Pulse Ox 12/07/20 11:57 98 F 78 16 103/52 L 96 12/07/20 08:00 96.1 F L 68 16 101/53 L 96 12/07/20 04:00 97.2 F 75 18 104/62 98 12/07/20 02:08 97.2 F 12/07/20 01:08 101.3 F H - Problem List & Annotations (1) Colitis SNOMED Code(s): 02809728 Code(s): K52.9 - NONINFECTIVE GASTROENTERITIS AND COLITIS, UNSPECIFIED Sta tus: Acute Current Visit: Yes (2) Diarrhea in adult patient SNOMED Code(s): 05800353 Code(s): R19.7 - DIARRHEA, UNSPECIFIED Status: Acute Current Visit: Yes - Problem List Review Problem List Initiated/Reviewed/Updated: Yes - My Orders Last 24 Hours: My Active Orders 12/06/20 11:30 GIARDIA ANTIGEN BY IMMUNOASSAY [MREF] Routine H PYLORI STOOL ANTIGEN [MREF] Urgent STOOL CULTURE [MREF] Routine 12/06/20 17:47 Saline Lock Insert [OM.PC] Routine 12/07/20 00:42 Temazepam [Restoril] 15 mg PO BEDTIME PRN 12/07/20 Lunch Soft Diet [DIET] - Plan Plan:: 12/06/2020 Patient is overall doing a lot better today. Laboratory work has significantly improved[place] currently [address] which was 15538 yesterday. Lactic acid was elevated yesterday and has normalized today. CRP elevate to 11 today, no prior available. Reviewed CT report from yesterday which did show nonspecific mild colitis. No appendicitis. Did show hepatomegaly and splenomegaly. Normal LFT's, amylase and lipase. Patient is afebrile. Will continue with IV antibiotics and reevaluate in am. Stool cultures orderd. C. Diff is negative. Stool for WBC's is negative. Will increase diet to clear liquids today. 12/07/2020 Blood cultures are negative. Stool did show few WBC cells. Negative C. Diff. WBC has normalized. CRP improved to 7 today. Labs otherwise unremarkable. Will advance to soft diet today. Continue IV antibiotics. Pending stool studies yet. If able to tolerate diet will plan for discharge tomorrow.
[2020-12-07 16:42] VITALS: BP 120/69; PULSE 80
--- NOTE | 2020-12-08 23:17 | PCM.DCSUM1 ---
Discharge Summary - Hospital Course HPI Initial Comments: Herve is a 25 year old male who was a direct admit from the ER on the 05 of December. Patient was admitted secondary to diarrhea that had started the day prior. Patient reports as the day progressed he became sweaty and having cold chills. He reports Sunday evening he started having abdominal pain, diarrhea, fever and nausea. Patient reports his abdominal pain waxes and wanes. Denies any other sick contacts. Diagnosis: Stroke: No - Discharge Data Discharge Date: 12/07/20 Discharge Disposition: Home, Self-Care 01 Condition: Good - Referral to Home Health Primary Care Physician: Zoltan Nava PA-C - Discharge Diagnosis/Problem(s) (1) Colitis SNOMED Code(s): 79819276 ICD Code: K52.9 - NONINFECTIVE GASTROENTERITIS AND COLITIS, UNSPECIFIED Status: Acute (2) Diarrhea in adult patient SNOMED Code(s): 39201823 ICD Code: R19.7 - DIARRHEA, UNSPECIFIED Status: Acute - Patient Instructions Diet: GI Soft/Low Residue/Low Fiber Activity: As Tolerated Notify Provider of: Fever, Increased Pain, Nausea and/or Vomiting - Discharge Plan *PRESCRIPTION DRUG MONITORING PROGRAM REVIEWED*: Not Applicable *COPY OF PRESCRIPTION DRUG MONITORING REPORT IN PATIENT CHRISTAL: Not Applicable Prescriptions/Med Rec: Ciprofloxacin HCl [Cipro] 500 mg PO BID #10 tablet Home Medications: Home Meds Acetaminophen [Tylenol] 650 mg PO Q6H PRN 12/05/20 [History] Ciprofloxacin HCl [Cipro] 500 mg PO BID #10 tablet 12/07/20 [Rx] Patient Handouts: Colitis Forms: ED Department Discharge Referrals: Zoltan Nava PA-C [Primary Care Provider] - (1 week) - Discharge Summary/Plan Comment DC Time >30 min.: Yes Discharge Summary/Plan Comment: Herve was able to advance his diet today without any complications. Admits the diarrhea has improved and feels he is ready to go home this evening. Denies any discomfort presently. Will discharge home on Cipro for 5 days, as discussed with Dr. Osorio. Patient has been afebrile today and appears to be in no acute distress or toxic. Stool for Giardia and culture are still pending at this time. Follow up appointment for next week, advised to return sooner if unable to tolerate diet, worsening diarrhea, pain, etc.. Patient verbalized understanding and in agreement. Will discharge home. - General Info Subjective Update: 12/06/2020 Herve states today he is feeling better than he was yesterday. Has broken his fever. Admits to ongoing diarrhea, which has slightly improved. Admits thru the night it was every couple hours. State he continues to have intermittent abdominal pain. Denies any nausea or vomiting. No bloody stools. Has history of antibiotic use a few months ago but denies any known history of C. Diff. 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 12/07/2020 Herve continues to be doing well. States the abdominal pain continues to improved. Currently has mild abdominal discomfort. Has done well with clear liquids and states he would like to advance his diet. Nursing staff admit he did have a low grade fever last night, currently afebrile. States the diarrhea has improved in frequency with only 1 episode last night and 1 this morning. Functional Status: Reports: Pain Controlled, Tolerating Diet, Ambulating, Urinating - Review of Systems General: Reports: No Symptoms HEENT: Reports: No Symptoms Pulmonary: Reports: No Symptoms Cardiovascular: Reports: No Symptoms Gastrointestinal: Reports: No Symptoms Genitourinary: Reports: No Symptoms Musculoskeletal: Reports: No Symptoms Skin: Reports: No Symptoms - Patient Data Vitals - Most Recent: Last Vital Signs Temp 98.3 F 12/07/20 16:00 Pulse 80 12/07/20 16:00 Resp 16 12/07/20 16:00 BP 120/69 12/07/20 16:00 Pulse Ox 96 12/07/20 16:00 Weight - Most Recent: 303 lb 4.8 oz JULIA Results - Last 24 hrs: Microbiology 12/06/20 11:30 Stool Aerobic Culture - Preliminary Stool / Feces 12/05/20 10:45 Aerobic Blood Culture - Preliminary Blood - Venous - Lab Draw NO GROWTH AFTER 3 DAYS Anaerobic Blood Culture - Preliminary NO GROWTH AFTER 3 DAYS 12/05/20 10:45 Aerobic Blood Culture - Preliminary Blood - Venous NO GROWTH AFTER 3 DAYS Anaerobic Blood Culture - Preliminary NO GROWTH AFTER 3 DAYS 12/06/20 11:30 Giardia Antigen (JULIA) - Final Stool / Feces 12/06/20 11:30 Helicobacter pylori Antigen - Final Stool / Feces Med Orders - Current: Current Medications Discontinued Medications Acetaminophen (Acetaminophen 500 Mg Tab) 1,000 mg PO ONETIME ONE Stop: 12/05/20 10:24 Last Admin: 12/05/20 10:28 Dose: 1,000 mg Documented by: Acetaminophen (Acetaminophen 500 Mg Tab) Confirm Administered Dose 500 mg .ROUTE .STK-MED ONE Stop: 12/05/20 10:06 Last Admin: 12/05/20 10:28 Dose: Not Given Documented by: Acetaminophen (Acetaminophen 325 Mg Tab) 650 mg PO Q4H PRN PRN Reason: Pain (Mild 1-3)/fever Last Admin: 12/06/20 09:16 Dose: 650 mg Documented by: Acetaminophen (Acetaminophen 500 Mg Tab) 1,000 mg PO Q6H PRN PRN Reason: Pain (Mild 1-3)/fever Sodium Chloride (Normal Saline) 1,000 mls @ 1,000 mls/hr IV .BOLUS ONE Stop: 12/05/20 11:35 Last Admin: 12/05/20 10:45 Dose: 1,000 mls/hr Documented by: Sodium Chloride (Normal Saline) 1,000 mls @ 125 mls/hr IV ASDIRECTED [facility] Stop: 12/06/20 22:58 Last Admin: 12/05/20 22:21 Dose: 125 mls/hr Documented by: Sodium Chloride (Normal Saline) 1,000 mls @ 999 mls/hr IV .BOLUS [facility] Last Admin: 12/05/20 15:22 Dose: 999 mls/hr Documented by: Piperacillin Sod/Tazobactam (Sod 4.5 gm/ Sodium Chloride) 100 mls @ 25 mls/hr IV Q8H [facility] Last Admin: 12/05/20 15:22 Dose: 25 mls/hr Documented by: Piperacillin Sod/Tazobactam (Sod 4.5 gm/ Sodium Chloride) 100 mls @ 25 mls/hr IV Q8H [facility] Last Admin: 12/07/20 16:52 Dose: Not Given Documented by: Ibuprofen (Ibuprofen 200 Mg Tab) 600 mg PO Q6H PRN PRN Reason: Pain (mild 1-3) Last Admin: 12/06/20 04:12 Dose: 600 mg Documented by: Ibuprofen (Ibuprofen 200 Mg Tab) 800 mg PO Q6H PRN PRN Reason: Pain (mild 1-3) Last Admin: 12/07/20 01:08 Dose: 800 mg Documented by: Iopamidol (Iopamidol 755 Mg/Ml 200 Ml Bottle) 160 ml IV ONETIME ONE Stop: 12/05/20 10:58 Last Admin: 12/05/20 11:43 Dose: 160 ml Documented by: Morphine Sulfate (Morphine 4 Mg/Ml Vial) 4 mg IVPUSH ONETIME ONE Stop: 12/05/20 11:25 Last Admin: 12/05/20 11:46 Dose: 4 mg Documented by: Morphine Sulfate (Morphine 2 Mg/Ml Syringe) 2 mg IVPUSH Q2H PRN PRN Reason: Pain (severe 7-10) Last Admin: 12/06/20 09:16 Dose: 2 mg Documented by: Ondansetron HCl (Ondansetron 4 Mg/2 Ml Sdv) 4 mg IVPUSH NOW STA Stop: 12/05/20 11:25 Last Admin: 12/05/20 11:46 Dose: 4 mg Documented by: Ondansetron HCl (Ondansetron 4 Mg/2 Ml Sdv) 4 mg IV Q6H PRN PRN Reason: Nausea/Vomiting Temazepam (Temazepam 15 Mg Cap) 15 mg PO BEDTIME PRN PRN Reason: Insomnia Last Admin: 12/07/20 01:08 Dose: 15 mg Documented by: - Exam General: Reports: Alert, Oriented, Cooperative, No Acute Distress Neck: Reports: Supple Lungs: Reports: Clear to Auscultation, Normal Respiratory Effort Cardiovascular: Reports: Regular Rate, Regular Rhythm, No Murmurs GI/Abdominal Exam: Normal Bowel Sounds, Soft, Non-Tender, No Organomegaly, No Distention, No Mass Skin: Reports: Warm, Dry, Intact Neurological: Reports: No New Focal Deficit Psy/Mental Status: Reports: Alert, Normal Affect, Normal Mood
== END 2020-12-07 17:06 | disposition home or self-care (01) | DRG 392 ==
LOC: CC.ED 10:08 → SUPCPDRO 10:08 → UNDOADMIN 13:10 → CC.MS 13:10
PROVIDERS: ADMIT Nurse Practitioner; ATTEND Family Medicine
DX: K52.9 Noninfective gastroenteritis and colitis, unspecified (principal); Z20.822 Contact with and (suspected) exposure to COVID-19
CPT/HCPCS: 0240U; 36415; 71046; 74177; 80053; 81001; 82150; 82550; 83605; 83690; 83880; 84484; 85025; 85379; 85610; 85730; 86140; 86308; 87040; 87045; 87046; 87329; 87338; 87430; 87493; 89055; 93005; 96374; 96375; 99285-25; A9270-GY; J2270; J2405; J2543; J7030; Q9967

== ENCOUNTER → 2022-01-20 | Day surgery (SDC) | payer MEDICAID ==
[~2022-01-20] MED LIST changes: -Acetaminophen 500 MG Tab ONE; +Flumazenil 0.1 MG/ML 10 ML MDV ONE; +Ketamine 200 MG/20 ML MDV ONE; +Midazolam 1 MG/ML 2 ML SDV ONE; +Propofol 200 MG/20 ML SDV ONE; +fentaNYL 100 MCG/2 ML SDV ONE
[2022-01-20] MEDS: Lactated Ringers 1,000 ML IV SCH (07:47)
[2022-01-20 10:36] VITALS: BP 112/71; PULSE 72
== END ==
LOC: CC.SDS 07:36
PROVIDERS: ATTEND Family Medicine
DX: K51.90 Ulcerative colitis, unspecified, without complications (principal); F17.210 Nicotine dependence, cigarettes, uncomplicated
CPT/HCPCS: 00811; J2250; J2704; J3010; J7120

== ENCOUNTER → 2022-07-13 | Day surgery (SDC) | payer MEDICAID ==
[~2022-07-13] MED LIST changes: +Dexamethasone 4 MG/ML SDV ONE; +Glycopyrrolate 0.2 MG/ML 2 ML SDV ONE; -Ketamine 200 MG/20 ML MDV ONE; +Ketorolac 60 MG/2 ML SDV ONE; +Lidocaine 2% 20 ML MDV ONE; +Neostigmine Methylsulfate 10 MG/10 ML MDV ONE; +Ondansetron 4 MG/2 ML SDV ONE; +Rocuronium 50 MG/5 ML Vial ONE; +Succinylcholine 200 MG/10 ML MDV ONE; -fentaNYL 100 MCG/2 ML SDV ONE; +fentaNYL 50 MCG/ML SDV ONE
[2022-07-13] MEDS: Lactated Ringers 1,000 ML IV SCH (09:21)
[2022-07-13] MEDS: Lidocaine 1% with EPINEPHrine 1:100,000 20 ML MDV INJECT ONE (10:35)
[2022-07-13 13:08] VITALS: BP 118/79; PULSE 86
== END ==
LOC: CC.SDS 09:02
PROVIDERS: ATTEND Surgery
DX: L05.91 Pilonidal cyst without abscess (principal); E66.9 Obesity, unspecified; K58.9 Irritable bowel syndrome, unspecified; Z68.35 Body mass index [BMI] 35.0-35.9, adult; Z98.890 Other specified postprocedural states
CPT/HCPCS: 00300; J0330; J1100; J1885; J2250; J2405; J2704; J2710; J3010; J3490; J7120